=== PATIENT | male | born 1985 | race Caucasian/White ===

== ENCOUNTER 2017-02-06 01:52 | Emergency (ER) | payer OTHER ==
--- NOTE | 2017-02-06 02:02 | PHYS DOC ---
Adult General HPI HPI Patient is a 31 year old M who presents with intractable right knee pain. Patient had surgery on Thursday for cartilage replacement of the right knee and was sent home with a ropivacaine pump in place that was attached into his abductor canal. The patient's numbing medication, ropivacaine, which was providing him analgesic relief ran out and the patient was told by his anesthesiologist to come the emergency room for further evaluation. The patient' s anesthesiologist met the patient in the emergency room and confirmed the pain pump was out. The anesthesiologist would like to bolus him with 0.5% bupivacaine to control his pain and lidocaine 2%. Pertinent exam findings: Right knee is in a knee immobilizer with an Bravo bandage and is tender to palpation secondary to recent surgery Right foot is neurovascular intact with good pulses and right thigh is not taunt and there is no signs of compartment syndrome ED course: Patient was seen and evaluated 0.5% bupivacaine was ordered 2% lidocaine 0235: 10 mL of 2% lidocaine was injected into the catheter followed by 20 mL 0.5 % bupivacaine 0241: 1mg of Dilaudid IM was administered 0312: Patient pain is down to 3/10 and well controlled and would like to go home. He will follow up with anesthesiologist to change out his pump. MDM: After reviewing the chart, CC/HPI/PMH, physical exam, I do not believe the patient has acute compartment syndrome of the right lower leg or in emergent condition of the right lower leg requiring further workup and/or admission at this time. The patient's nerve block pump medicine ran out and once the medication is replaced with lidocaine and bupivacaine the patient's pain was under control. On reexamination the patient's pain was under control and ready go home. Patient will follow-up with his anesthesiologist for further management of his pump. Patient is stable for discharge. Additional verbal discharge instructions were provided to the patient and that if symptoms get worse or any new symptoms arise that are worrisome to the patient he is to return to the emergency room immediately Review of Systems Review of Systems GEN: Denies fevers, chills, sweats HEENT: Denies blurred vision, sore throat CV: Denies chest pain RESP: Denies shortness of air, cough GI: Denies n/v/d NEURO: Denies confusion, dizziness MSK: Right knee pain Physical Exam Physical Exam GEN.: Moderate distress. Alert and oriented. HEENT: Head is normocephalic, atraumatic NECK: Supple. LUNGS: CTAB. HEART: RRR, S1, S2 present. Peripheral pulses intact ABDOMEN: Soft, nontender. Positive bowel sounds. EXTREMITIES: Without any cyanosis, right knee is currently in a brace with an Bravo wrap secondary to recent surgery. Positive tender to palpation to the right knee. Positive dorsal pedis pulse on the right with a neurovascularly intact right lower extremity NEUROLOGIC: Normal speech, normal tone PSYCHIATRIC: Normal affect, normal mood. SKIN: No ulcerations EKG EKG [] Radiology/Procedures Radiology/Procedures [] Course & Med Decision Making Course & Med Decision Making Pertinent Labs and Imaging studies reviewed. (See chart for details) [] Dragon Disclaimer Dragon Disclaimer This chart was dictated in whole or in part using Voice Recognition software in a busy, high-work load, and often noisy Emergency Department environment. It may contain unintended and wholly unrecognized errors or omissions. Departure Departure: Impression: Primary Impression: Postoperative pain of right knee Disposition: 01 HOME, SELF-CARE Condition: IMPROVED Patient Instructions: Knee - Arthroscopic Procedure, Care After Additional Instructions: Please follow up with anesthesiologist for further pain management and to replace the ropivacaine in your pump CLAYTON RODRIGUEZ DO Feb 06, 2017 02:02
[2017-02-06] MEDS ORDERED: BUPIVACAINE MPF 0.5% 30 ML VIAL. ONE (02:19)
[2017-02-06] MEDS ORDERED: BUPIVACAINE MPF 0.5% 30 ML VIAL. SQ ONE (02:30)
[2017-02-06] MEDS ORDERED: HYDROmorphone PF 1 MG/ML DISP.SYRIN IM ONE (03:00)
[2017-02-06 03:20] VITALS: BP 133/84
== END 2017-02-06 03:20 | disposition home or self-care (01) ==
LOC: ER 01:52
DX: G89.18 Other acute postprocedural pain (principal); M25.561 Pain in right knee
CPT/HCPCS: 96372; 99284; J1170; J3490